=== PATIENT | male | born 1975 | race Caucasian/White ===

== ENCOUNTER 2024-05-22 08:35 | Emergency (ER) | payer OTHER ==
[~2024-05-22] VITALS: Ht 160 cm; Wt 95.3 kg
[2024-05-22 08:42] VITALS: BP_SYST 144; PULSE 85; RESP 22; TEMP 98.3; O2SAT 98
[2024-05-22] MEDS ORDERED: LIDOCAINE 1%, 20 ML MDV 20 ML ONE (08:42)
[2024-05-22] MEDS: LIDOCAINE 1% 10 MG/ML, 20 ML MDV INJ ONE (08:43)
[2024-05-22] MEDS ORDERED: IBUP-1971 PO (08:55)
[2024-05-22] MEDS ORDERED: CLIN-142 PO (08:55)
[2024-05-22] MEDS ORDERED: ACET500P25 PO (09:13)
[2024-05-22 09:16] VITALS: BP_SYST 144; PULSE 85; RESP 22; TEMP 98.3; O2SAT 98
[2024-05-22] MEDS: BACITRACIN 1 GM OINT TP ONE (09:23)
[2024-05-22] MEDS: IBUPROFEN 800 MG TABLET PO ONE (09:24)
[2024-05-22] MEDS: DIPHTH,PERTUSS(ACELL),TET VAC 0.5 ML VIAL (Tdap) I.M. ONE (09:29)
== END 2024-05-22 09:30 | disposition home or self-care (01) ==
LOC: SED 08:35
DX: L03.012 Cellulitis of left finger (principal); Z23 Encounter for immunization; Z88.5 Allergy status to narcotic agent; Z79.899 Other long term (current) drug therapy; Z79.2 Long term (current) use of antibiotics
CPT/HCPCS: 73140; 90715; 99283; J2001